=== PATIENT | female | born 1940 | race Caucasian/White ===

== ENCOUNTER → 2017-11-17 | Outpatient (CLI) | payer MEDICARE ==
[~2017-11-17] MED LIST: ALBU90OI61 INH; ALLERGY RELIEF10 MG PO; ASPI325 PO; D3-20002000 UNIT PO; DOCU100 PO; Flonase 0.05% N16 GM; GABA100 PO; MONT5TCH PO; Multiple Vitam1 EAC1 PO; OMEP40CA12 PO; PRED20 PO; PRESERVISION A1 EACH PO; Prilosec Otc20 MG PO
== END | disposition home or self-care (01) ==
LOC: LAB SHORT 18:26 → LAB EV 18:26
DX: R07.0 Pain in throat (principal)
CPT/HCPCS: 87070

== ENCOUNTER 2020-08-28 11:20 | Day surgery (SDC) | payer MEDICARE ==
[~2020-08-28] VITALS: Ht 149.9 cm; Wt 77.8 kg
== END 2020-08-28 13:19 | disposition home or self-care (01) ==
LOC: ORSCSDS 11:20
PROVIDERS: Surgery
PROC: 0DBK8ZX Excision of Ascending Colon, Via Natural or Artificial Opening Endoscopic, Diagnostic (ICD-10-PCS; principal; 2020-08-28 12:00)
DX: Z12.11 Encounter for screening for malignant neoplasm of colon (principal); Z86.010 Personal history of colon polyps; D12.2 Benign neoplasm of ascending colon; K21.9 Gastro-esophageal reflux disease without esophagitis; E66.9 Obesity, unspecified; Z68.35 Body mass index [BMI] 35.0-35.9, adult; Z79.899 Other long term (current) drug therapy
CPT/HCPCS: 88305; J2405; J2704; J7120

== ENCOUNTER → 2020-10-07 | Outpatient (CLI) | payer MEDICARE | END | disposition home or self-care (01) | LOC: LAB SHORT 11:07 → LAB 11:07 | DX: K92.1 Melena (principal) | CPT/HCPCS: 87338 ==

== ENCOUNTER → 2021-01-03 | Outpatient (CLI) | payer MEDICARE ==
[2021-01-03 08:11] LABS: Source, Urine Clean Catch
[2021-01-03 10:30] LABS: Bilirubin, Urine Neg (Neg); Blood, Urine 1+ (Neg); Glucose Qualitative, Urine Neg (Neg); Ketones, Urine Neg (Neg); Leukocyte Esterase, Urine 3+ (Neg); Nitrite, Urine Neg (Neg); Protein, Urine 2+ (Neg); Specific Gravity, Urine 1.015 (1.003-1.022); Urobilinogen, Urine NORM (Normal)
[2021-01-03 10:57] LABS: Appearance, Urine Clear (Clear); Color, Urine Yellow (P-Yellow)
[2021-01-03 11:47] LABS: Bacteria Few /hpf; Red Blood Cells, Urine 0-2 /hpf (0-2); Squamous Epithelial Cells Few /hpf (Few); White Blood Cells, Urine 50-100 /hpf (0-5)
== END | disposition home or self-care (01) ==
LOC: LAB 08:07 → LAB SHORT 08:07
PROVIDERS: Internal Medicine
DX: N13.4 Hydroureter (principal); N13.5 Crossing vessel and stricture of ureter without hydronephrosis
CPT/HCPCS: 81001; 87077; 87086; 87186

== ENCOUNTER → 2021-01-25 | Outpatient (CLI) | payer MEDICARE ==
[2021-01-25 09:19] LABS: Source, Urine Clean Catch
[2021-01-25 10:48] LABS: Appearance, Urine Clear (Clear); Bilirubin, Urine Neg (Neg); Color, Urine Yellow (P-Yellow); Glucose Qualitative, Urine Neg (Neg); Ketones, Urine Neg (Neg); Nitrite, Urine Neg (Neg); Protein, Urine 1+ (Neg); Urobilinogen, Urine NORM (Normal)
[2021-01-25 10:54] LABS: Blood, Urine 4+ (Neg); Leukocyte Esterase, Urine Neg (Neg)
[2021-01-25 11:22] LABS: Bacteria Rare /hpf; Squamous Epithelial Cells Few /hpf (Few)
== END ==
LOC: LAB SHORT 09:16 → LAB 09:16
PROVIDERS: Urology
DX: N39.0 Urinary tract infection, site not specified (principal); Z88.5 Allergy status to narcotic agent; Z91.038 Other insect allergy status
CPT/HCPCS: 81001; 87086

== ENCOUNTER → 2021-03-06 | Outpatient (CLI) | payer MEDICARE ==
[2021-03-06 09:30] LABS: Source, Urine Clean Catch
[2021-03-06 10:41] LABS: Appearance, Urine Clear (Clear); Bilirubin, Urine Neg (Neg); Blood, Urine Neg (Neg); Color, Urine Yellow (P-Yellow); Glucose Qualitative, Urine Neg (Neg); Ketones, Urine Neg (Neg); Leukocyte Esterase, Urine 2+ (Neg); Nitrite, Urine Neg (Neg); Protein, Urine 1+ (Neg); Urobilinogen, Urine NORM (Normal)
[2021-03-06 11:41] LABS: Red Blood Cells, Urine 0-2 /hpf (0-2); White Blood Cells, Urine 25-50 /hpf (0-5)
[2021-03-06 11:42] LABS: Bacteria Few /hpf; Squamous Epithelial Cells Not Seen /hpf (Few)
== END | disposition home or self-care (01) ==
LOC: LAB 09:28 → LAB SHORT 09:28
PROVIDERS: Internal Medicine
DX: R30.0 Dysuria (principal)
CPT/HCPCS: 81001; 87077; 87086; 87186

== ENCOUNTER → 2021-04-17 | Outpatient (CLI) | payer MEDICARE ==
[2021-04-17 12:10] LABS: Source, Urine Clean Catch
[2021-04-17 15:17] LABS: Appearance, Urine Hazy (Clear); Bilirubin, Urine Neg (Neg); Blood, Urine 1+ (Neg); Color, Urine Yellow (P-Yellow); Glucose Qualitative, Urine Neg (Neg); Ketones, Urine Neg (Neg); Leukocyte Esterase, Urine 3+ (Neg); Nitrite, Urine Pos (Neg); Protein, Urine 1+ (Neg); Urobilinogen, Urine NORM (Normal)
[2021-04-17 16:21] LABS: Bacteria Many /hpf; Red Blood Cells, Urine 0-2 /hpf (0-2); Squamous Epithelial Cells Rare /hpf (Few); White Blood Cells, Urine 25-50 /hpf (0-5)
== END | disposition home or self-care (01) ==
LOC: LAB 11:45 → LAB SHORT 11:45 → LAB FUT 04-17 10:35 → EDSTATUS 04-17 10:35
PROVIDERS: Urology
DX: N39.0 Urinary tract infection, site not specified (principal)
CPT/HCPCS: 81001; 87077; 87086; 87186

== ENCOUNTER → 2021-04-29 | Outpatient (CLI) | payer MEDICARE ==
[2021-04-29 07:33] LABS: Source, Urine Clean Catch
[2021-04-29 10:39] LABS: Appearance, Urine Clear (Clear); Bilirubin, Urine Neg (Neg); Blood, Urine Neg (Neg); Color, Urine Yellow (P-Yellow); Glucose Qualitative, Urine Neg (Neg); Ketones, Urine Neg (Neg); Leukocyte Esterase, Urine Neg (Neg); Nitrite, Urine Neg (Neg); Protein, Urine Neg (Neg); Specific Gravity, Urine 1.015 (1.003-1.022); Urobilinogen, Urine NORM (Normal)
== END ==
LOC: LAB SHORT 07:31 → LAB FUT 04-26 17:35
PROVIDERS: Urology
DX: N39.0 Urinary tract infection, site not specified (principal)
CPT/HCPCS: 81003; 87086

== ENCOUNTER → 2021-05-17 | Outpatient (CLI) | payer MEDICARE ==
[2021-05-17 10:34] LABS: Source, Urine Clean Catch
[2021-05-17 13:19] LABS: Bilirubin, Urine Neg (Neg); Blood, Urine 5+ (Neg); Glucose Qualitative, Urine Neg (Neg); Ketones, Urine Neg (Neg); Leukocyte Esterase, Urine 2+ (Neg); Nitrite, Urine Neg (Neg); Protein, Urine 2+ (Neg); Urobilinogen, Urine NORM (Normal)
[2021-05-17 13:59] LABS: Appearance, Urine Hazy (Clear); Bacteria Mod /hpf; Color, Urine Pale Yellow (P-Yellow); Red Blood Cells, Urine 25-50 /hpf (0-2); Squamous Epithelial Cells Rare /hpf (Few)
[2021-05-17 14:00] LABS: Renal Epithelial Rare /hpf (0-Rare)
== END | disposition home or self-care (01) ==
LOC: LAB SHORT 10:00
PROVIDERS: Urology
DX: N39.0 Urinary tract infection, site not specified (principal)
CPT/HCPCS: 81001; 87077; 87086; 87186

== ENCOUNTER → 2021-06-04 | Outpatient (CLI) | payer MEDICARE ==
[2021-06-04 09:23] LABS: Source, Urine Clean Catch
[2021-06-04 10:30] LABS: Appearance, Urine Hazy (Clear); Bilirubin, Urine Neg (Neg); Blood, Urine 2+ (Neg); Color, Urine Yellow (P-Yellow); Glucose Qualitative, Urine Neg (Neg); Ketones, Urine Neg (Neg); Leukocyte Esterase, Urine 3+ (Neg); Nitrite, Urine Pos (Neg); Protein, Urine 1+ (Neg); Urobilinogen, Urine NORM (Normal)
[2021-06-04 11:05] LABS: Bacteria Many /hpf; Renal Epithelial Rare /hpf (0-Rare); Squamous Epithelial Cells Not Seen /hpf (Few); White Blood Cells, Urine TNTC /hpf (0-5)
== END ==
LOC: LAB SHORT 09:21
PROVIDERS: Internal Medicine
DX: R30.0 Dysuria (principal)
CPT/HCPCS: 81001

== ENCOUNTER → 2021-12-16 | Outpatient (CLI) | payer MEDICARE ==
[2021-12-16 08:37] LABS: Source, Urine Clean Catch
[2021-12-16 10:15] LABS: Appearance, Urine Cloudy (Clear); Bilirubin, Urine Neg (Neg); Blood, Urine 1+ (Neg); Color, Urine Yellow (P-Yellow); Glucose Qualitative, Urine Neg (Neg); Ketones, Urine Neg (Neg); Leukocyte Esterase, Urine 3+ (Neg); Nitrite, Urine Neg (Neg); Protein, Urine 1+ (Neg); Specific Gravity, Urine 1.015 (1.003-1.022); Urobilinogen, Urine NORM (Normal)
[2021-12-16 10:38] LABS: White Blood Cells, Urine TNTC /hpf (0-5)
[2021-12-16 10:39] LABS: Bacteria Mod /hpf; Squamous Epithelial Cells Not Seen /hpf (Few)
== END ==
LOC: LAB 08:36 → LAB SHORT 08:36
PROVIDERS: Nurse Practitioner Adult Health
DX: N39.0 Urinary tract infection, site not specified (principal)
CPT/HCPCS: 81001

== ENCOUNTER → 2022-01-22 | Outpatient (CLI) | payer MEDICARE ==
[2022-01-22 17:28] LABS: Adenovirus F 40/41 Not Detected (NOT DETECT); Astrovirus Not Detected (NOT DETECT); Campylobacter Sp Not Detected (NOT DETECT); Cryptosporidium Not Detected (NOT DETECT); Cyclospora Cayetanensis Not Detected (NOT DETECT); E. Coli O157 Not Detected (NOT DETECT); Entamoeba Histolytica Not Detected (NOT DETECT); Enteroaggregative E. coli-EAEC Not Detected (NOT DETECT); Enteropathogenic E. coli-EPEC Not Detected (NOT DETECT); Enterotoxigenic E. coli-ETEC Not Detected (NOT DETECT); Giardia Lamblia Not Detected (NOT DETECT); Norovirus GI/GII Not Detected (NOT DETECT); Plesiomonas Shigelloides Not Detected (NOT DETECT); Rotavirus A Not Detected (NOT DETECT); Salmonella Sp Not Detected (NOT DETECT); Sapovirus Not Detected (NOT DETECT); Shiga Toxin-prod E. coli-STEC Not Detected (NOT DETECT); Shigella/Enteroin E. coli-EIEC Not Detected (NOT DETECT); Vibrio Cholerae Not Detected (NOT DETECT); Vibrio Sp Not Detected (NOT DETECT); Yersinia Enterocolitica Not Detected (NOT DETECT)
== END | disposition home or self-care (01) ==
LOC: LAB SHORT 10:14 → LAB 10:14
PROVIDERS: Internal Medicine
DX: K90.9 Intestinal malabsorption, unspecified (principal)
CPT/HCPCS: 87507

== ENCOUNTER → 2022-02-10 | Outpatient (CLI) | payer MEDICARE ==
[2022-02-10 08:04] LABS: Source, Urine Clean Catch
[2022-02-10 10:18] LABS: Appearance, Urine Hazy (Clear); Bilirubin, Urine Neg (Neg); Blood, Urine 2+ (Neg); Color, Urine Yellow (P-Yellow); Glucose Qualitative, Urine Neg (Neg); Ketones, Urine Neg (Neg); Leukocyte Esterase, Urine 2+ (Neg); Nitrite, Urine Neg (Neg); Protein, Urine 2+ (Neg); Urobilinogen, Urine NORM (Normal)
[2022-02-10 10:43] LABS: Bacteria Mod /hpf; White Blood Cells, Urine 50-100 /hpf (0-5)
[2022-02-10 10:44] LABS: Red Blood Cells, Urine 0-2 /hpf (0-2); Squamous Epithelial Cells Rare /hpf (Few)
== END | disposition home or self-care (01) ==
LOC: LAB 08:02 → LAB SHORT 08:02 → EDSTATUS 11-27 18:00 → LAB FUT 11-27 18:00
PROVIDERS: Nurse Practitioner Adult Health
DX: N39.0 Urinary tract infection, site not specified (principal)
CPT/HCPCS: 81001; 87077; 87086; 87186

== ENCOUNTER → 2022-05-03 | Outpatient (CLI) | payer MEDICARE | END | disposition home or self-care (01) | LOC: LAB 15:50 → LAB SHORT 15:50 | DX: N39.0 Urinary tract infection, site not specified (principal) | CPT/HCPCS: 87077; 87086; 87186 ==

== ENCOUNTER → 2022-07-17 | Outpatient (CLI) | payer MEDICARE ==
[~2022-07-17] MED LIST changes: +ACET500 PO; +ACYC800 PO; +ASCO500 PO; +CEFP200 PO; +CLOBETASOL EMOL15 G1 TOP; +ELLURA200 MG PO; +ESTRADIOL42.5 GM VAG; +GEMTESA75 MG PO; +OMEP20ER PO; +TRAM50 PO; +Vitamin D1000 UNI1 PO; +ZOLPIDEM 5 MG PO; +[UNRECOGNIZED DRUG - OTHER] PO
[2022-07-17 12:14] LABS: Source, Urine Clean Catch
[2022-07-17 15:33] LABS: Appearance, Urine Clear (Clear); Bilirubin, Urine Neg (Neg); Blood, Urine Neg (Neg); Color, Urine Yellow (P-Yellow); Glucose Qualitative, Urine Neg (Neg); Ketones, Urine Neg (Neg); Leukocyte Esterase, Urine Neg (Neg); Nitrite, Urine Neg (Neg); Protein, Urine Neg (Neg); Specific Gravity, Urine 1.005 (1.003-1.022); Urobilinogen, Urine NORM (Normal)
== END | disposition home or self-care (01) ==
LOC: LAB 12:13 → LAB SHORT 12:13
PROVIDERS: Internal Medicine
DX: R30.0 Dysuria (principal)
CPT/HCPCS: 81003

== ENCOUNTER → 2023-01-22 | Outpatient (CLI) | payer MEDICARE ==
[2023-01-22 09:28] LABS: Source, Urine Clean Catch
[2023-01-22 10:43] LABS: Appearance, Urine Clear (Clear); Bilirubin, Urine Neg (Neg); Blood, Urine Neg (Neg); Color, Urine Yellow (P-Yellow); Glucose Qualitative, Urine Neg (Neg); Ketones, Urine Neg (Neg); Leukocyte Esterase, Urine 1+ (Neg); Nitrite, Urine Neg (Neg); Protein, Urine Neg (Neg); Urobilinogen, Urine NORM (Normal); pH, Urine 6.5 (5.0-8.0)
[2023-01-22 11:10] LABS: Bacteria Rare /hpf; Red Blood Cells, Urine Not Seen /hpf (0-2); Squamous Epithelial Cells Not Seen /hpf (Few)
== END ==
LOC: LAB 09:26 → LAB SHORT 09:26
PROVIDERS: Internal Medicine
DX: R30.0 Dysuria (principal)
CPT/HCPCS: 81001; 87077; 87086; 87186

== ENCOUNTER → 2023-09-18 | Outpatient (CLI) | payer MEDICARE ==
[2023-09-18 07:42] LABS: Source, Urine Clean Catch
[2023-09-18 11:16] LABS: Appearance, Urine Hazy (Clear); Bilirubin, Urine Neg (Neg); Blood, Urine 1+ (Neg); Color, Urine Yellow (P-Yellow); Glucose Qualitative, Urine Neg (Neg); Ketones, Urine Neg (Neg); Leukocyte Esterase, Urine 2+ (Neg); Nitrite, Urine Neg (Neg); Protein, Urine Neg (Neg); Specific Gravity, Urine 1.005 (1.003-1.022); Urobilinogen, Urine NORM (Normal)
[2023-09-18 11:49] LABS: Bacteria Few /hpf; Red Blood Cells, Urine 0-2 /hpf (0-2); Squamous Epithelial Cells Not Seen /hpf (Few); Transitional Epithelial Cells Few /hpf (0-Rare); White Blood Cells, Urine TNTC /hpf (0-5)
== END | disposition home or self-care (01) ==
LOC: LAB 07:41 → LAB SHORT 07:41
PROVIDERS: Internal Medicine
DX: R30.0 Dysuria (principal)
CPT/HCPCS: 81001; 87086

== ENCOUNTER → 2023-10-13 | Outpatient (CLI) | payer MEDICARE ==
[~2023-10-13] MED LIST changes: +AMOX-CLAV 875-1 EAC5; +FOSAMAX70 MG PO; +GABA300 PO; +NASACORT10.8 ML; +STOOL SOFTENER; +ZYRTEC10 M2
[2023-10-14 13:55] LABS: Adenovirus F 40/41 Not Detected (NOT DETECT); Astrovirus Not Detected (NOT DETECT); Campylobacter Sp Not Detected (NOT DETECT); Cryptosporidium Not Detected (NOT DETECT); Cyclospora Cayetanensis Not Detected (NOT DETECT); E. Coli O157 Not Detected (NOT DETECT); Entamoeba Histolytica Not Detected (NOT DETECT); Enteroaggregative E. coli-EAEC Not Detected (NOT DETECT); Enteropathogenic E. coli-EPEC Not Detected (NOT DETECT); Enterotoxigenic E. coli-ETEC Not Detected (NOT DETECT); Giardia Lamblia Not Detected (NOT DETECT); Norovirus GI/GII Not Detected (NOT DETECT); Plesiomonas Shigelloides Not Detected (NOT DETECT); Rotavirus A Not Detected (NOT DETECT); Salmonella Sp Not Detected (NOT DETECT); Sapovirus Not Detected (NOT DETECT); Shiga Toxin-prod E. coli-STEC Not Detected (NOT DETECT); Shigella/Enteroin E. coli-EIEC Not Detected (NOT DETECT); Vibrio Cholerae Not Detected (NOT DETECT); Vibrio Sp Not Detected (NOT DETECT); Yersinia Enterocolitica Not Detected (NOT DETECT)
== END ==
LOC: LAB 09:26 → LAB SHORT 09:26
PROVIDERS: Internal Medicine
DX: R19.7 Diarrhea, unspecified (principal); R10.33 Periumbilical pain
CPT/HCPCS: 87507

== ENCOUNTER 2023-10-20 06:05 | Day surgery (SDC) | payer MEDICARE ==
[~2023-10-20] VITALS: Ht 149.9 cm; Wt 79.0 kg
[~2023-10-20 06:05] MED LIST changes: -AMOX-CLAV 875-1 EAC5; +Balanced Salt Epinephrine Irrigation Solution 500 mL IR PRN; -FOSAMAX70 MG PO; -GABA300 PO; +Gentamicin Ophth IR Soln 4 MG/0.4 ML SYR IR SCH; +Lidocaine HCl/Pf 1% 5 ML VIAL XX SCH; -NASACORT10.8 ML; +PHENYLEPHRINE\\TROPICAMIDE\\TETRACAINE OPHTHALMIC DILATING SOLN LEFTEYE PRN; +Povidone-Iodine 450 DROP/30 ML Solution LEFTEYE SCH; -STOOL SOFTENER; +Vancomycin Ophth IR Soln 10 MG/0.2 ML SYR IR SCH; -ZYRTEC10 M2
[2023-10-20] MEDS ORDERED: NS 500 ML IV ONE ×2 (06:06→07:08)
[2023-10-20] MEDS ORDERED: Lidocaine HCl/Pf 1% 5 ML VIAL ONE (06:45)
[2023-10-20] MEDS ORDERED: AMOX-CLAV 875-1 EAC5 (06:52)
[2023-10-20] MEDS ORDERED: FOSAMAX70 MG PO (06:53)
[2023-10-20] MEDS ORDERED: ZYRTEC10 M2 (06:53)
[2023-10-20] MEDS ORDERED: STOOL SOFTENER (06:53)
[2023-10-20] MEDS ORDERED: GABA300 PO (06:54)
[2023-10-20] MEDS ORDERED: NASACORT10.8 ML (06:55)
[2023-10-20] MEDS ORDERED: FentaNYL Citrate 50 MCG/ML 2 ML Injection ONE (07:13)
[2023-10-20] MEDS ORDERED: Midazolam HCl 1MG / ML 2ML Vial ONE (07:13)
--- NOTE | 2023-10-20 07:20 | NUR ---
10/20/23 0720 Nakita Rachel 0720: DR SELF NOTIFIED THAT PATIENT IS CURRENTLY ON ANTIBIOTICS FOR DIVERTICULITIS, STARTED THEM ONE WEEK AGO.
[2023-10-20] MEDS ORDERED: propofoL 20 ML IV ONE (07:29)
[2023-10-20 08:32] VITALS: BP 132/62
== END 2023-10-20 08:37 | disposition home or self-care (01) ==
LOC: ORSCSDS 06:05
PROVIDERS: Ophthalmology
PROC: 08RK3JZ Replacement of Left Lens with Synthetic Substitute, Percutaneous Approach (ICD-10-PCS; principal; 2023-10-20 07:30)
DX: H25.13 Age-related nuclear cataract, bilateral (principal); I10 Essential (primary) hypertension; H52.13 Myopia, bilateral; H52.223 Regular astigmatism, bilateral; H52.4 Presbyopia; Z79.899 Other long term (current) drug therapy
CPT/HCPCS: J2001; J2250; J2704; J3010; J7040; V2632

== ENCOUNTER → 2024-12-01 | Outpatient (CLI) | payer MEDICARE ==
[~2024-12-01] MED LIST changes: +AMOX-CLAV 875-1 EAC5; -Balanced Salt Epinephrine Irrigation Solution 500 mL IR PRN; +FOSAMAX70 MG PO; +GABA300 PO; -Gentamicin Ophth IR Soln 4 MG/0.4 ML SYR IR SCH; -Lidocaine HCl/Pf 1% 5 ML VIAL XX SCH; +NASACORT10.8 ML; -PHENYLEPHRINE\\TROPICAMIDE\\TETRACAINE OPHTHALMIC DILATING SOLN LEFTEYE PRN; -Povidone-Iodine 450 DROP/30 ML Solution LEFTEYE SCH; +STOOL SOFTENER; -Vancomycin Ophth IR Soln 10 MG/0.2 ML SYR IR SCH; +ZYRTEC10 M2
[2024-12-02 15:02] LABS: Campylobacter Sp Not Detected (NOT DETECT); E. Coli O157 Not Detected (NOT DETECT); Enteroaggregative E. coli-EAEC Not Detected (NOT DETECT); Enteropathogenic E. coli-EPEC Not Detected (NOT DETECT); Enterotoxigenic E. coli-ETEC Not Detected (NOT DETECT); Salmonella Sp Not Detected (NOT DETECT); Shiga Toxin-prod E. coli-STEC Not Detected (NOT DETECT); Shigella/Enteroin E. coli-EIEC Not Detected (NOT DETECT); Vibrio Sp Not Detected (NOT DETECT)
== END ==
LOC: LAB 16:05 → LAB SHORT 16:05
PROVIDERS: Internal Medicine
DX: R19.7 Diarrhea, unspecified (principal)
CPT/HCPCS: 87507

== ENCOUNTER → 2025-03-08 | Outpatient (CLI) | payer MEDICARE ==
[2025-03-08 13:43] LABS: BASOPHILS ABSOLUTE AUTO 0.03 K/mm3 (0.00-0.23); BASOPHILS PERCENT AUTO 0 % (0-2); EOSINOPHILS ABSOLUTE AUTO 0.16 K/mm3 (0.00-0.68); EOSINOPHILS PERCENT AUTO 2 % (0-6); Hematocrit 33.1 % (33.0-51.0); Hemoglobin 10.4 g/dL (11.5-16.0); IMMATURE GRAN ABSOLUTE AUTO 0.04 K/mm3 (0.00-0.10); IMMATURE GRAN PERCENT AUTO 1 % (0-1); LYMPHOCYTES ABSOLUTE AUTO 0.66 K/mm3 (0.84-5.20); LYMPHOCYTES PERCENT AUTO 9 % (21-46); MONOCYTES ABSOLUTE AUTO 0.54 K/mm3 (0.16-1.47); MONOCYTES PERCENT AUTO 7 % (4-13); Mean Corpuscular HGB Conc 31.4 g/dL (31.5-36.5); Mean Corpuscular Volume 91 fL (80-100); NEUTROPHILS ABSOLUTE AUTO 5.86 K/mm3 (1.96-9.15); NEUTROPHILS PERCENT AUTO 80 % (41-73); NRBC ABSOLUTE 0.00 K/mm3 (0.00-0.02); NRBC Auto 0.0 /100 WBC (0.0-0.2); Platelet Count 377 K/mm3 (150-400); RDW Coefficient Variation 14.4 % (11.7-14.2); RDW Standard Deviation 47.8 fL (35.1-46.3)
[2025-03-08 15:10] LABS: Alanine Aminotransfer (ALT/SGP 73.0 U/L (12-78); Albumin, Blood 3.5 g/dL (3.4-5.0); Albumin/Globulin Ratio 1.2 (0.8-1.8); Anion Gap 11.0 mmol/L (3-11); Aspartate Aminotrans (AST/SGOT 61.0 U/L (12-37); Bilirubin, Total 0.6 mg/dL (0.1-1.0); Blood Urea Nitrogen 25.0 mg/dL (8-24); CO2, Blood 25.0 mmol/L (21-32); Calcium, Blood 9.1 mg/dL (8.5-10.1); Chloride, Blood 105.0 mmol/L (98-108); Creatinine, Blood 0.74 mg/dL (0.40-1.00); Ferritin, Serum 407.0 ng/mL (8-252); Globulin, Blood 3.0 g/dL (2.2-4.0); Glucose, Blood 109.0 mg/dL (70-99); Lactate Dehydrogenase (Ld),Bld 366.0 U/L (100-240); Potassium, Blood 4.5 mmol/L (3.5-5.5); Sodium, Blood 136.0 mmol/L (136-145); Total Iron Binding Capacity 277.0 ug/dL (250-450); Total Protein, Blood 6.5 g/dL (6.4-8.2)
[2025-03-10 09:40] LABS: HAPTOGLOBIN 175 mg/dL (30-200)
== END ==
LOC: LAB SHORT 10:23 → LAB 10:23
PROVIDERS: Internal Medicine
DX: E61.1 Iron deficiency (principal); D59.10 Autoimmune hemolytic anemia, unspecified
CPT/HCPCS: 80053; 82728; 83010; 83540; 83550; 83615; 85025